=== PATIENT | male | born 1955 | race Caucasian/White ===

== ENCOUNTER 2022-05-09 22:37 | Emergency (ER) | payer OTHER, MEDICARE ==
[2022-05-09 23:01] VITALS: RESP 19; TEMP 98.6; BMI 20.9
[2022-05-09 23:03] VITALS: BP 177/108
[2022-05-09 23:08] VITALS: PULSE 88
[2022-05-09] MEDS ORDERED: LORazepam 1 MG TABLET PO ONE (23:45)
[2022-05-09] MEDS ORDERED: LORazepam 0.5 MG TABLET ONE (23:46)
[2022-05-09] MEDS ORDERED: metoPROLOL SUCCINATE 25 MG TAB.SR.24H (FP) PO ONE ×2 (23:46)
[2022-05-10] MEDS ORDERED: PHENAZOPYRIDINE HCL 100 MG TABLET (FP) ONE (03:03)
== END 2022-05-10 00:07 | disposition home or self-care (01) ==
LOC: FER 22:37
DX: I10 Essential (primary) hypertension (principal)
CPT/HCPCS: 99283-25

== ENCOUNTER 2022-05-10 02:33 | Emergency (ER) | payer OTHER, MEDICARE ==
[2022-05-10 02:56] VITALS: TEMP 98; BMI 20.9
[2022-05-10] MEDS ORDERED: PHENAZOPYRIDINE HCL 100 MG TABLET (FP) PO ONE (03:04)
[2022-05-10 03:10] VITALS: BP 139/84; PULSE 72; RESP 18
[2022-05-10 04:10] LABS: EPI CELLS 4 /uL (0-25.1); HYALINE CASTS 0 /uL (0-3.1); URINE APPEARANCE CLEAR; URINE BACTERIA 3 /uL (0-1359); URINE BILIRUBIN NEGATIVE (NEGATIVE); URINE COLOR YELLOW; URINE GLUCOSE (UA) NEGATIVE (NEGATIVE); URINE KETONE NEGATIVE (NEGATIVE); URINE LEUK ESTERASE NEGATIVE (NEGATIVE); URINE NITRITE NEGATIVE (NEGATIVE); URINE PROTEIN NEGATIVE (NEGATIVE); URINE RBC 480 /uL (0-23.9); URINE UROBILINOGEN 0.2 mg/dL (0.2-1.0); URINE WBC 4 /uL (0-25.8)
== END 2022-05-10 03:20 | disposition home or self-care (01) ==
LOC: FER 02:33
DX: R33.9 Retention of urine, unspecified (principal)
CPT/HCPCS: 81003; 87086; 99283-25

== ENCOUNTER 2022-10-04 22:08 | Emergency (ER) | payer OTHER, MEDICARE ==
[2022-10-04 22:19] VITALS: PULSE 90; RESP 17; TEMP 98; BMI 21.1
[2022-10-04 23:24] VITALS: BP 199/107
== END 2022-10-04 23:40 | disposition home or self-care (01) ==
LOC: FER 22:08
DX: I10 Essential (primary) hypertension (principal)
CPT/HCPCS: 99283-25

== ENCOUNTER 2022-10-06 16:50 | Emergency (ER) | payer OTHER, MEDICARE ==
[2022-10-06 17:08] VITALS: PULSE 82; RESP 18; TEMP 97.8; BMI 21.1
[2022-10-06 18:40] VITALS: BP 167/99
== END 2022-10-06 18:41 | disposition home or self-care (01) ==
LOC: FER 16:50
DX: I10 Essential (primary) hypertension (principal)
CPT/HCPCS: 99282-25